=== PATIENT | female | born 1990 | race Caucasian/White ===

== ENCOUNTER 2016-07-22 14:28 | Emergency (ER) | payer BC, MEDICAID ==
[~2016-07-22] VITALS: Ht 162.6 cm; Wt 87.5 kg
[2016-07-22 16:04] VITALS: BP 115/67
== END 2016-07-22 16:04 | disposition home or self-care (01) ==
LOC: ED 14:28
DX: T78.1XXA Other adverse food reactions, not elsewhere classified, initial encounter (principal); F41.9 Anxiety disorder, unspecified; J45.909 Unspecified asthma, uncomplicated; R06.4 Hyperventilation; E66.9 Obesity, unspecified; X58.XXXA Exposure to other specified factors, initial encounter
CPT/HCPCS: J0171; J2930